=== PATIENT | female | born 1960 | race African-American/Black ===

== ENCOUNTER 2022-09-24 09:12 | Emergency (ER) | payer MEDICAID ==
[~2022-09-24] VITALS: Ht 172.7 cm; Wt 85.7 kg
--- NOTE | 2022-09-24 09:45 | NUR ---
Patient complained bilateral chest and rib pain associated with cough, and the pain has lasted for >1 week. She denies radiation of pain to shoulder and at rset. Patient is alert and conscious, GCS [id number]. No LL edema.
[2022-09-24] MEDS ORDERED: IBUPROFEN 600 MG TABLET ONE (09:57)
[2022-09-24] MEDS ORDERED: IBUPROFEN 600 MG TABLET PO ONE (10:00)
--- NOTE | 2022-09-24 10:34 | NUR ---
CXR was just done, await further assessment. Patient is ambulatory and walked to the bathroom herself without active complaint.
--- NOTE | 2022-09-24 11:30 | NUR ---
Patient discharged to home in stable condition. Written and verbal after care instructions given. Patient verbalizes understanding of instruction.Patient does not have IV line upon discharge.
[2022-09-24 11:32] VITALS: BP 138/68
== END 2022-09-24 11:32 | disposition home or self-care (01) ==
LOC: ER 09:33
DX: R05.9 Cough, unspecified (principal)
CPT/HCPCS: 71045-TC

== ENCOUNTER 2022-10-17 16:14 | Emergency (ER) | payer MEDICAID ==
[~2022-10-17] VITALS: Ht 172.7 cm; Wt 87.1 kg
--- NOTE | 2022-10-17 16:35 | NUR ---
AT [facility] FOR EVAL.
--- NOTE | 2022-10-17 16:35 | NUR ---
C/O SORE THROAT AND FEVER SINCE LAST MONDAY, SHE ALSO MENTIONED THAT SHE IS HAVING EPIGASTRIC PAIN AND GREEN COLORED STOOL. NO INITIAL ORDERS THIS TIME . AWAITING FOR MD SOUZA.
--- NOTE | 2022-10-17 17:24 | NUR ---
covid and strep swabs collected and sent to lab
--- NOTE | 2022-10-17 17:24 | NUR ---
urine collected and sent to lab
[2022-10-17 17:45] LABS: BASOPHILS % (AUTO) 0.5 % (0.0-2.0); EOSINOPHILS % (AUTO) 3.7 % (0.0-6.0); HEMATOCRIT 40 % (33-45); HEMOGLOBIN 13.2 g/dL (11.5-14.8); LYMPHOCYTES # (AUTO) 1.4 K/uL (0.8-4.8); LYMPHOCYTES % (AUTO) 30.3 % (20.0-44.0); MEAN CORPUSCULAR HGB CONC 33 g/dl (31.0-36.0); MEAN CORPUSCULAR VOLUME 84 fL (82-100); MONOCYTES # (AUTO) 0.3 K/uL (0.1-1.30); NEUTROPHILS # (AUTO) 2.8 K/uL (1.8-8.9); NEUTROPHILS % (AUTO) 58.5 % (43.0-81.0); PLATELET COUNT (AUTO) 219 K/uL (150-450); RED BLOOD CELL COUNT(AUTO) 4.78 MIL/uL (4.0-5.2); WHITE BLOOD COUNT (AUTO) 4.7 K/uL (4.3-11.0)
[2022-10-17 17:53] LABS: BILIRUBIN,URINE NEGATIVE (NEGATIVE); COLOR,URINE YELLOW (YELLOW); LEUKOCYTE ESTERASE ,URINE NEGATIVE (NEGATIVE); NITRITE, URINE NEGATIVE (NEGATIVE); PH,URINE 7.5 (5.0-8.0); PROTEIN,URINE NEGATIVE (NEGATIVE); UGLUCOSE NEGATIVE (NEGATIVE); UROBILINOGEN,URINE 0.2 EU/dL (0.2)
[2022-10-17 17:53] LABS: CALCIUM, SERUM 9.1 mg/dL (8.5-10.1); CREATININE 0.7 mg/dL (0.6-1.3); POTASSIUM 3.8 mmol/L (3.5-5.1)
[2022-10-17 17:59] LABS: ALBUMIN 3.8 g/dL (3.4-5.0); BILIRUBIN,TOTAL 0.4 mg/dL (0.2-1.0); TOTAL PROTEIN, SERUM 7.1 g/dL (6.4-8.2)
[2022-10-17 20:32] VITALS: BP 134/86
== END 2022-10-17 20:32 | disposition home or self-care (01) ==
LOC: ER 16:17
DX: J02.9 Acute pharyngitis, unspecified (principal); R10.13 Epigastric pain; R05.9 Cough, unspecified; Z20.822 Contact with and (suspected) exposure to COVID-19; Z88.1 Allergy status to other antibiotic agents
CPT/HCPCS: 99284; 74176; 76705; 71045; 87426; 85025; 80048; 83690; 80076; 81003; 36415; 87880; C9803; 86403-TC

== ENCOUNTER 2022-11-03 07:26 | Emergency (ER) | payer MEDICAID ==
[~2022-11-03] VITALS: Ht 172.7 cm; Wt 87.1 kg
--- NOTE | 2022-11-03 07:35 | NUR ---
Gayle HEARNx4, able to express her concerns. Patient states she has been experiencing left rib pain after fall 2 weeks ago. Discussed plan of care, patient verbalized agreement. All safety precautions taken.
--- NOTE | 2022-11-03 08:44 | NUR ---
Patient discharged to home in stable condition. Written and verbal after care instructions given. Patient verbalizes understanding of instruction.
[2022-11-03 08:45] VITALS: BP 152/81
== END 2022-11-03 08:48 | disposition home or self-care (01) ==
LOC: ER 07:39
DX: R07.81 Pleurodynia (principal); Z88.1 Allergy status to other antibiotic agents
CPT/HCPCS: 71100-TC

== ENCOUNTER 2023-01-18 13:44 | Emergency (ER) | payer MEDICAID ==
[~2023-01-18] VITALS: Ht 172.7 cm; Wt 87.1 kg
[2023-01-18] MEDS ORDERED: ACETAMINOPHEN ES 500 MG TABLET ONE (15:12)
[2023-01-18] MEDS ORDERED: ACETAMINOPHEN ES 500 MG TABLET PO ONE (15:30)
[2023-01-18 15:33] LABS: BASOPHILS # (AUTO) 0.1 K/uL (0.0-0.2); BASOPHILS % (AUTO) 1.4 % (0.0-2.0); EOSINOPHILS # (AUTO) 0.2 K/uL (0.0-0.7); HEMATOCRIT 43 % (33-45); LYMPHOCYTES # (AUTO) 1.1 K/uL (0.8-4.8); LYMPHOCYTES % (AUTO) 26.2 % (20.0-44.0); MEAN CORPUSCULAR HEMOGLOBIN 28 PG (26.0-33.0); MEAN CORPUSCULAR HGB CONC 33 g/dl (31.0-36.0); MEAN CORPUSCULAR VOLUME 85 fL (82-100); MONOCYTES # (AUTO) 0.3 K/uL (0.1-1.30); MONOCYTES % (AUTO) 7.9 % (2.0-12.0); NEUTROPHILS # (AUTO) 2.6 K/uL (1.8-8.9); NEUTROPHILS % (AUTO) 60.5 % (43.0-81.0); PLATELET COUNT (AUTO) 215 K/uL (150-450); RED BLOOD CELL COUNT(AUTO) 4.98 MIL/uL (4.0-5.2); RED CELL DISTRIBUTION WIDTH 14.8 % (11.5-15.0); WHITE BLOOD COUNT (AUTO) 4.4 K/uL (4.3-11.0)
[2023-01-18 17:14] LABS: ALANINE AMINOTRANSFERASE 28 U/L (12-78); ALBUMIN 3.7 g/dL (3.4-5.0); ALKALINE PHOSPHATASE 105 U/L (46-116); ASPARTATE AMINOTRANSFERASE 20 U/L (15-37); BILIRUBIN,DIRECT 0.1 mg/dL (0.0-0.2); BILIRUBIN,TOTAL 0.4 mg/dL (0.2-1.0); CALCIUM, SERUM 9.6 mg/dL (8.5-10.1); CREATININE 0.7 mg/dL (0.6-1.3); TOTAL PROTEIN, SERUM 7.5 g/dL (6.4-8.2); UREA NITROGEN, BLOOD 12 mg/dL (7-18)
[2023-01-18 17:17] LABS: CARBON DIOXIDE 26 mmol/L (21-32); CHLORIDE 105 mmol/L (98-107); POTASSIUM 3.9 mmol/L (3.5-5.1); SODIUM SERUM 137 mmol/L (136-145)
[2023-01-18 17:18] LABS: GLUCOSE 80 mg/dL (74-106); NT-PRO BNP 8 pg/mL (0-125)
[2023-01-18 18:05] VITALS: BP 120/75; TEMP 98; O2SAT 98
== END 2023-01-18 18:04 | disposition home or self-care (01) ==
LOC: ER 13:50
DX: R60.9 Edema, unspecified (principal); M25.532 Pain in left wrist; M79.645 Pain in left finger(s); Z88.8 Allergy status to other drugs, medicaments and biological substances
CPT/HCPCS: 36415; 71045-TC; 73090-TC; 73130-TC; 80048-TC; 80076-TC; 83880; 84484-TC; 85025-TC; 93970-TC

== ENCOUNTER 2023-05-29 12:57 | Emergency (ER) | payer MEDICAID ==
[~2023-05-29] VITALS: Ht 172.7 cm; Wt 87.1 kg
[2023-05-29] MEDS ORDERED: BENZ-13 PO (15:57)
[2023-05-29 16:22] VITALS: BP 118/60; TEMP 98.9; O2SAT 99
== END 2023-05-29 16:23 | disposition home or self-care (01) ==
LOC: ER 13:00
DX: J02.9 Acute pharyngitis, unspecified (principal); R05.9 Cough, unspecified; Z79.899 Other long term (current) drug therapy; Z88.1 Allergy status to other antibiotic agents
CPT/HCPCS: 71045-TC; 86403-TC; J7030

== ENCOUNTER 2024-07-20 10:52 | Emergency (ER) | payer MEDICAID ==
[~2024-07-20] VITALS: Ht 172.7 cm; Wt 86.2 kg
[~2024-07-20 10:52] MED LIST: BENZ-13 PO
[2024-07-20 12:04] LABS: BASOPHILS % (AUTO) 0.6 % (0.0-2.0); EOSINOPHILS # (AUTO) 0.2 K/uL (0.0-0.7); EOSINOPHILS % (AUTO) 4.7 % (0.0-6.0); HEMATOCRIT 44 % (33-45); HEMOGLOBIN 14.8 g/dL (11.5-14.8); LYMPHOCYTES # (AUTO) 1.3 K/uL (0.8-4.8); LYMPHOCYTES % (AUTO) 27.5 % (20.0-44.0); MEAN CORPUSCULAR HEMOGLOBIN 29 PG (26.0-33.0); MEAN CORPUSCULAR HGB CONC 34 g/dl (31.0-36.0); MEAN CORPUSCULAR VOLUME 87 fL (82-100); MONOCYTES # (AUTO) 0.3 K/uL (0.1-1.30); MONOCYTES % (AUTO) 6.8 % (2.0-12.0); NEUTROPHILS # (AUTO) 2.8 K/uL (1.8-8.9); NEUTROPHILS % (AUTO) 60.4 % (43.0-81.0); PLATELET COUNT (AUTO) 228 K/uL (150-450); RED BLOOD CELL COUNT(AUTO) 5.05 MIL/uL (4.0-5.2); RED CELL DISTRIBUTION WIDTH 14.4 % (11.5-15.0); WHITE BLOOD COUNT (AUTO) 4.6 K/uL (4.3-11.0)
[2024-07-20 12:17] LABS: CALCIUM, SERUM 9.5 mg/dL (8.5-10.1); CARBON DIOXIDE 34 mmol/L (21-32); CHLORIDE 105 mmol/L (98-107); CREATININE 0.7 mg/dL (0.6-1.3); GLUCOSE 75 mg/dL (74-106); POTASSIUM 4.1 mmol/L (3.5-5.1); SODIUM SERUM 141 mmol/L (136-145); UREA NITROGEN, BLOOD 15 mg/dL (7-18)
[2024-07-20 12:24] LABS: ALANINE AMINOTRANSFERASE 34 U/L (12-78); ALBUMIN 3.9 g/dL (3.4-5.0); ALKALINE PHOSPHATASE 105 U/L (46-116); ASPARTATE AMINOTRANSFERASE 26 U/L (15-37); BILIRUBIN,DIRECT 0.1 mg/dL (0.0-0.2); BILIRUBIN,TOTAL 0.7 mg/dL (0.2-1.0); TOTAL PROTEIN, SERUM 7.9 g/dL (6.4-8.2)
[2024-07-20] MEDS: IV NS 0.9% 1,000 ML BAG IV ONE (13:23)
[2024-07-20 15:16] LABS: CREATINE KINASE, TOTAL 362 U/L (26-192)
[2024-07-20 17:40] VITALS: BP 144/78; TEMP 98.6; O2SAT 100
== END 2024-07-20 17:49 | disposition home or self-care (01) ==
LOC: ER 11:00
DX: R07.89 Other chest pain (principal); M79.10 Myalgia, unspecified site; R51.9 Headache, unspecified; R05.9 Cough, unspecified; Z88.6 Allergy status to analgesic agent; Z88.8 Allergy status to other drugs, medicaments and biological substances; Z20.822 Contact with and (suspected) exposure to COVID-19
CPT/HCPCS: 99285; 96360; 71045; 87426; 93005 ×2; 87804 ×2; 85025; 80048; 82550 ×2; 80076; 36415; 84484 ×2; 82553; J7030

== ENCOUNTER 2024-12-30 14:40 | Emergency (ER) | payer MEDICAID ==
[~2024-12-30] VITALS: Ht 172.7 cm; Wt 86.2 kg
[2024-12-30] MEDS ORDERED: CYCLOBENZAPRINE 10 MG TABLET ONE (15:55)
[2024-12-30] MEDS ORDERED: ACETAMINOPHEN ES 500 MG TABLET ONE (15:55)
[2024-12-30] MEDS: CYCLOBENZAPRINE 10 MG TABLET PO ONE (16:01)
[2024-12-30] MEDS: ACETAMINOPHEN ES 500 MG TABLET PO ONE (16:02)
[2024-12-30] MEDS ORDERED: CYCL5TAB PO (16:41)
[2024-12-30 16:53] VITALS: BP 130/80; TEMP 98; O2SAT 98
== END 2024-12-30 16:54 | disposition home or self-care (01) ==
LOC: ER 14:51
DX: M54.6 Pain in thoracic spine (principal); Z88.6 Allergy status to analgesic agent; Z88.8 Allergy status to other drugs, medicaments and biological substances; Z79.899 Other long term (current) drug therapy
CPT/HCPCS: 71045-TC

== ENCOUNTER 2025-04-10 06:01 | Emergency (ER) | payer MEDICAID ==
[~2025-04-10] VITALS: Ht 175.3 cm; Wt 90.7 kg
[~2025-04-10 06:01] MED LIST changes: +CYCL5TAB PO
[2025-04-10] MEDS ORDERED: MAG HYDROX/AL HYDROX/SIMETH 30 ML UDC ONE (06:56)
[2025-04-10] MEDS ORDERED: MORPHINE SULFATE INJ 4 MG/ML DISP.SYRIN ONE (06:56)
[2025-04-10] MEDS ORDERED: ONDANSETRON HCL/PF 4 MG/2 ML VIAL ONE (06:56)
[2025-04-10] MEDS ORDERED: LIDOCAINE VISCOUS 2% UD 15 ML UDC ONE (06:56)
[2025-04-10 07:06] LABS: PLATELET COUNT (AUTO) 239 K/uL (150-450); RED BLOOD CELL COUNT(AUTO) 5.10 MIL/uL (4.0-5.2); RED CELL DISTRIBUTION WIDTH 14.4 % (11.5-15.0); WHITE BLOOD COUNT (AUTO) 4.0 K/uL (4.3-11.0)
[2025-04-10] MEDS: MAG HYDROX/AL HYDROX/SIMETH 30 ML UDC PO ONE (07:10)
[2025-04-10] MEDS: MORPHINE SULFATE INJ 2 MG/ML DISP.SYRIN IV ONE (07:10)
[2025-04-10] MEDS: ONDANSETRON HCL/PF 4 MG/2 ML VIAL IVP ONE (07:10)
[2025-04-10] MEDS: FAMOTIDINE/PF INJ 20 MG/2 ML VIAL IV ONE (07:10)
[2025-04-10] MEDS: LIDOCAINE VISCOUS 2% UD 15 ML UDC MM ONE (07:10)
[2025-04-10 07:14] LABS: CALCIUM, SERUM 8.7 mg/dL (8.5-10.1); CREATININE 0.8 mg/dL (0.6-1.3); SODIUM SERUM 142 mmol/L (136-145); UREA NITROGEN, BLOOD 15 mg/dL (7-18)
[2025-04-10 07:29] LABS: ASPARTATE AMINOTRANSFERASE 19 U/L (15-37); TOTAL PROTEIN, SERUM 7.0 g/dL (6.4-8.2)
[2025-04-10 11:07] VITALS: BP 126/82; TEMP 98; O2SAT 97
== END 2025-04-10 11:07 | disposition home or self-care (01) ==
LOC: ER 06:17
DX: R10.13 Epigastric pain (principal); R10.11 Right upper quadrant pain; Z88.6 Allergy status to analgesic agent; Z88.8 Allergy status to other drugs, medicaments and biological substances
CPT/HCPCS: 99285; 96374; 76700; 96375; 71045; 93005; 85025; 80048; 83690; 80076; 85378; 36415; 84484 ×2; J2270; J2405

== ENCOUNTER 2025-05-18 15:50 | Inpatient (IN) | payer MEDICAID ==
[~2025-05-18] VITALS: Ht 172.7 cm; Wt 88.9 kg
[2025-05-18] MEDS ORDERED: IOHEXOL-350 100 ML VIAL IV ONE (16:35)
[2025-05-18] MEDS ORDERED: IV NS 0.9% 250 ML IV ONE (16:36)
[2025-05-18] MEDS ORDERED: FAMO40TA7 PO (17:02)
[2025-05-18] MEDS ORDERED: NAPR-1009 PO (17:02)
[2025-05-18 17:17] LABS: PLATELET COUNT (AUTO) 214 K/uL (150-450); RED BLOOD CELL COUNT(AUTO) 5.28 MIL/uL (4.0-5.2); RED CELL DISTRIBUTION WIDTH 14.7 % (11.5-15.0); WHITE BLOOD COUNT (AUTO) 4.5 K/uL (4.3-11.0)
[2025-05-18 17:24] LABS: CALCIUM, SERUM 9.2 mg/dL (8.5-10.1); CREATININE 0.6 mg/dL (0.6-1.3); SODIUM SERUM 141 mmol/L (136-145); UREA NITROGEN, BLOOD 12 mg/dL (7-18)
[2025-05-18 17:30] LABS: ALCOHOL, BLOOD < 3 mg/dL (0-10); ASPARTATE AMINOTRANSFERASE 13 U/L (15-37); TOTAL PROTEIN, SERUM 7.3 g/dL (6.4-8.2)
[2025-05-18] MEDS ORDERED: PROCHLORPERAZINE EDISYLATE 10 MG/2 ML VIAL ONE (17:59)
[2025-05-18] MEDS: IV NS 0.9% 1,000 ML IV ONE (18:05)
[2025-05-18] MEDS: PROCHLORPERAZINE EDISYLATE 10 MG/2 ML VIAL IVP STA (18:05)
[2025-05-18] MEDS ORDERED: ONDANSETRON HCL/PF 4 MG/2 ML VIAL IVP PRN (18:30)
[2025-05-18] MEDS ORDERED: MAGNESIUM HYDROXIDE 30 ML UDC PO PRN (18:30)
[2025-05-18] MEDS ORDERED: Z GUARD REMEDY 4 OZ OINT TP PRN (18:30)
[2025-05-18 18:32] LABS: APPEARANCE,URINE CLEAR (CLEAR); BLOOD, URINE NEGATIVE Ery/uL (NEGATIVE); LEUKOCYTE ESTERASE ,URINE NEGATIVE (NEGATIVE); NITRITE, URINE NEGATIVE (NEGATIVE); UGLUCOSE NEGATIVE (NEGATIVE)
[2025-05-18 18:45] LABS: AMPHETAMINE, URINE NEGATIVE (NEGATIVE); BARBITURATE, URINE NEGATIVE (NEGATIVE); BENZODIAZEPINE, URINE NEGATIVE (NEGATIVE); CANNABINOID, URINE NEGATIVE (NEGATIVE); COCCAINE, URINE NEGATIVE (NEGATIVE); OPIATE, URINE NEGATIVE (NEGATIVE)
[2025-05-18 21:10] VITALS: BP 139/88; TEMP 97.7; O2SAT 100
[2025-05-18] MEDS ORDERED: BLOOD SUGAR DIAGNOSTIC 1 EACH STRIP IN SCH (22:00)
[2025-05-18] MEDS: MAG HYDROX/AL HYDROX/SIMETH 30 ML UDC PO PRN (22:33)
[2025-05-18] MEDS: ASPIRIN 325 MG TABLET PO SCH (22:33)
[2025-05-18] MEDS: ACETAMINOPHEN 325 MG TABLET PO PRN (22:34)
[2025-05-19] VITALS (7 sets, daily range): BP systolic 111–134; BP diastolic 61–88; TEMP 97.3–98.7; O2SAT 97–100
[2025-05-19] MEDS: BLOOD SUGAR DIAGNOSTIC 1 EACH STRIP IN SCH
[2025-05-19 06:12] LABS: PLATELET COUNT (AUTO) 210 K/uL (150-450); RED BLOOD CELL COUNT(AUTO) 5.05 MIL/uL (4.0-5.2); RED CELL DISTRIBUTION WIDTH 14.6 % (11.5-15.0); WHITE BLOOD COUNT (AUTO) 3.8 K/uL (4.3-11.0)
[2025-05-19 06:21] LABS: CALCIUM, SERUM 8.7 mg/dL (8.5-10.1); CREATININE 0.7 mg/dL (0.6-1.3); PHOSPHORUS 3.4 mg/dL (2.5-4.9); SODIUM SERUM 145.0 mmol/L (136-145); UREA NITROGEN, BLOOD 9.0 mg/dL (7-18)
[2025-05-20] VITALS: BP 122/86; TEMP 98.4; O2SAT 97
[2025-05-20 04:00] VITALS: BP 125/81; TEMP 98.4; O2SAT 98
[2025-05-20 08:00] VITALS: BP 136/77; TEMP 97.9; O2SAT 98
[2025-05-20 12:00] VITALS: BP_SYST 111; BP_SYST 138; BP_DIAS 60; BP_DIAS 85; TEMP 97.5; TEMP 98.7; O2SAT 97; O2SAT 99
[2025-05-20 13:55] LABS: LDL 106.0 mg/dL (0-99)
[2025-05-20 16:00] VITALS: BP 126/82; TEMP 98.7; O2SAT 98
[2025-05-22 02:07] LABS: FOLIC ACID 16.6 ng/mL (>3.0)
== END 2025-05-20 18:46 | disposition home or self-care (01) | DRG 351 ==
LOC: ER 15:50 → TELE1 20:37
PROVIDERS: ADMIT Internal Medicine; ATTEND Nurse Practitioner Acute Care
DX: M75.41 Impingement syndrome of right shoulder (principal); M54.2 Cervicalgia; Z79.899 Other long term (current) drug therapy; Z88.6 Allergy status to analgesic agent; R20.2 Paresthesia of skin; R53.1 Weakness; R51.9 Headache, unspecified
CPT/HCPCS: 36415; 70450-TC; 70496-TC; 70498-TC; 71045-TC; 80048-TC; 80061-TC; 80076-TC; 82607-TC; 82962-TC; 83690-TC; 83735-TC; 83921; 84100-TC; 84425; 84443-TC; 84484-TC; 85025-TC; 85730-TC; 87086-TC; 92507-TC; 92521; 97110-TC; 97116-TC; 97530-TC; 97535-TC; G0378; G0480; J0780; J1200; J7050; Q9967

== ENCOUNTER 2025-06-13 18:15 | Emergency (ER) | payer MEDICAID ==
[~2025-06-13] VITALS: Ht 172.7 cm; Wt 87.1 kg
[~2025-06-13 18:15] MED LIST changes: -BENZ-13 PO; -CYCL5TAB PO; +FAMO40TA7 PO; +NAPR-1009 PO
[2025-06-13 18:37] VITALS: TEMP 98.1
[2025-06-13] MEDS ORDERED: PROCHLORPERAZINE EDISYLATE 10 MG/2 ML VIAL ONE (20:27)
[2025-06-13] MEDS ORDERED: KETOROLAC TROMETHAMINE 15 MG/ML VIAL ONE (20:27)
[2025-06-13] MEDS ORDERED: dexaMETHasone SOD PHOSPHATE 1 ML ONE (20:27)
[2025-06-13] MEDS ORDERED: MECLIZINE HCL 25 MG TABLET ONE (20:28)
[2025-06-13] MEDS: MECLIZINE HCL 25 MG TABLET PO ONE (20:30)
[2025-06-13] MEDS: IV NS 0.9% 1,000 ML BAG IV ONE (20:40)
[2025-06-13] MEDS: PROCHLORPERAZINE EDISYLATE 10 MG/2 ML VIAL IVP ONE (20:50)
[2025-06-13] MEDS: dexaMETHasone SOD PHOSPHATE 10 MG/ML VIAL IV ONE (20:50)
[2025-06-13] MEDS: KETOROLAC TROMETHAMINE 15 MG/ML VIAL IV ONE (20:50)
[2025-06-13] MEDS ORDERED: PROC-11 PO (21:57)
[2025-06-13] MEDS ORDERED: KETO10TA2 PO (21:57)
[2025-06-13] MEDS ORDERED: MECL-159 PO (21:57)
[2025-06-13 22:16] VITALS: BP 140/79; O2SAT 98
== END 2025-06-13 22:45 | disposition home or self-care (01) ==
LOC: ER 18:23
DX: R51.9 Headache, unspecified (principal); R42 Dizziness and giddiness; R11.0 Nausea; Z88.8 Allergy status to other drugs, medicaments and biological substances
CPT/HCPCS: 99285; 96374; 70450; 96375; 96361; J1885; J8597; J0780; J1100; J7030